=== PATIENT | female | born 1980 | race Caucasian/White ===

== ENCOUNTER 2022-01-18 01:31 | Observation (INO) ==
[2022-01-18] MEDS ORDERED: Ketorolac 15 MG/ML VIAL ONE (05:01)
[2022-01-18 05:22] LABS: Basophils % 0.3 %; Eosinophils # 0.1 K/mcL (0.0-0.6); Eosinophils % 0.7 %; Hemoglobin 13.8 g/dL (11.5-15.4); Immature Granulocytes % 0.3 % (0-4); Lymphocytes # 2.6 K/mcL (0.6-4.6); Lymphocytes % 21.6 %; Mean Corpuscular HGB Conc 32.9 g/dL (31.6-35.5); Mean Corpuscular Hemoglobin 28.5 pg (28.0-33.3); Mean Corpuscular Volume 86.6 fL (83.0-100.0); Mean Platelet Volume 9.9 fL (9.4-12.4); Monocytes # 0.5 K/mcL (0.0-1.3); Monocytes % 4.2 %; Neutrophils # 8.8 K/mcL (1.6-8.9); Platelet Count 343 K/mcL (140-400); Red Blood Count 4.85 M/mcL (3.82-4.97); Red Cell Distribution Width 12.4 % (11.5-14.5); Segmented Neutrophils % 72.9 %
[2022-01-18] MEDS ORDERED: Iopamidol - 370 500 ML MLS IVP ONE (05:36)
[2022-01-18 07:20] LABS: Albumin 4.1 g/dL (3.5-5.7); Bilirubin,Direct 0.1 mg/dL (0.0-0.2); Calcium 9.4 mg/dL (8.6-10.3)
[2022-01-18 07:30] LABS: Albumin/Globulin Ratio 1.4 (1.1-2.2); Bilirubin,Indirect 0.5 mg/dL (0.0-1.0); Bilirubin,Total 0.6 mg/dL (0.3-1.0); Total Protein 7.1 g/dL (6.4-8.9)
[2022-01-18] MEDS ORDERED: *HR* OxyCODONE Immed Rel 5 MG TABLET PO PRN ×3 (10:38→18:53)
[2022-01-18] MEDS ORDERED: Acetaminophen 325 MG TABLET PO PRN (10:38)
[2022-01-18] MEDS ORDERED: Ondansetron 4 MG/2 ML VIAL IVP PRN ×2 (10:38→15:44)
[2022-01-18] MEDS ORDERED: CeFAZolin Syr 2,000MG/20 ML 2,000 MG/20 ML SYRINGE IVPB ONE (11:00)
[2022-01-18] MEDS: Ringers Solution, Lactated 1,000 ML IVC SCH (12:09)
[2022-01-18] MEDS ORDERED: Ondansetron 4 MG/2 ML VIAL ONE (14:41)
[2022-01-18] MEDS ORDERED: Ketamine HCL *QUVA* 50mg (1mL) SYRINGE ONE (14:41)
[2022-01-18] MEDS ORDERED: *HR* Rocuronium Bromide 50 MG/5 ML VIAL ONE ×2 (14:41→18:02)
[2022-01-18] MEDS ORDERED: *HR* Propofol 200 MG/20 ML VIAL IVP ONE (14:41)
[2022-01-18] MEDS ORDERED: Lidocaine -MPF 2% 2 ML VIAL ONE (14:41)
[2022-01-18] MEDS ORDERED: *HR* Midazolam HCl 2 MG/2 ML VIAL ONE (14:41)
[2022-01-18] MEDS ORDERED: *HR* FentaNYL (PF) 100 MCG/2 ML VIAL ONE (14:41)
[2022-01-18] MEDS ORDERED: Ketorolac 30 MG/ML VIAL IVP PRN (15:44)
[2022-01-18] MEDS ORDERED: Ipratropium Neb 0.5 MG NEBULIZER IH PRN (15:44)
[2022-01-18] MEDS ORDERED: *HR* Labetalol 20 MG/4 ML SYRINGE IVP PRN (15:44)
[2022-01-18] MEDS ORDERED: *HR* HYDROmorphone PF 0.5 MG/0.5 ML SYRINGE IVP PRN (15:44)
[2022-01-18] MEDS ORDERED: Albuterol 2.5 MG/3 ML NEBULIZER IH PRN (15:44)
[2022-01-18] MEDS ORDERED: Lidocaine HCL 4 ML Topical Solution (Laryng-O-Jet Kit Sterile Pak) TP ONE (16:17)
[2022-01-18] MEDS ORDERED: EPHEDrine sulfate 50 MG/10 ML VIAL IVP ONE (18:04)
[2022-01-18] MEDS ORDERED: Sugammadex Sodium 200 MG/2 ML VIAL IV ONE (18:31)
[2022-01-18] MEDS ORDERED: *HR* HYDROMORPHONE 2 MG/ML VIAL ONE (18:34)
[2022-01-18] MEDS ORDERED: Morphine Sulfate 2 MG/ML SYRINGE IVP PRN (18:52)
[2022-01-18] MEDS ORDERED: Ibuprofen 800 MG TABLET PO PRN (18:52)
[2022-01-18] MEDS: *HR* FentaNYL (PF) 100 MCG/2 ML VIAL IVP PRN ×2 (19:46→20:00)
[2022-01-18 21:09] VITALS: TEMP 97.9
[2022-01-19] MEDS: Ringers Solution, Lactated 1,000 ML IVC SCH ×2 (02:08→08:50)
[2022-01-19 06:58] VITALS: BP 120/79; PULSE 81; O2SAT 97
== END 2022-01-19 09:22 | disposition home or self-care (01) ==
LOC: 3ANU 01:31 → EMEROOARM 01:31 → 3ANU 15:03
PROVIDERS: ADMIT Surgery; ATTEND Surgery